=== PATIENT | female | born 1990 | race Caucasian/White ===

== ENCOUNTER 2017-12-16 13:43 | Emergency (ER) | payer SELFPAY | END 2017-12-16 15:51 | disposition home or self-care (01) | LOC: ER 13:43 | DX: L02.219 Cutaneous abscess of trunk, unspecified (principal); Z86.14 Personal history of Methicillin resistant Staphylococcus aureus infection; Z87.891 Personal history of nicotine dependence; Z88.1 Allergy status to other antibiotic agents | CPT/HCPCS: 99283 ==